=== PATIENT | female | born 1975 | race African-American/Black ===

== ENCOUNTER 2019-07-05 11:59 | Day surgery (SDC) | payer BC, OTHER ==
[2019-07-02 17:35] VITALS: BMI 39.0
[2019-07-05 12:28] LABS: BASO % 0.7 % (0-2.0); EOS % 2.5 % (0-4.5); HEMATOCRIT 26.8 % (32.4-45.2); HEMOGLOBIN 8.3 GM/dL (10.7-15.3); LYMPH % 33.8 % (8-40); MCH 24.2 pg (25.7-33.7); MEAN CELL VOLUME 78.1 fl (80-96); MEAN PLT VOLUME 7.2 fl (7.5-11.1); MONO % 8.6 % (3.8-10.2); NEUT % 54.4 % (42.8-82.8); PLATELET COUNT 279 K/MM3 (134-434); RBC 3.43 M/mm3 (3.60-5.2); RDW 15.1 % (11.6-15.6); WHITE BLOOD COUNT 4.7 K/mm3 (4.0-10.0)
[2019-07-05 12:46] LABS: INR 1.01 (0.83-1.09); PROTHROMBIN TIME (PATIENT) 11.9 SEC (9.7-13.0)
[2019-07-05 12:49] LABS: ACTIVATED PTT 31.1 SECONDS (25.2-36.5)
[2019-07-05 12:59] LABS: ALBUMIN 3.2 g/dl (3.4-5.0); ALK PHOS 66 U/L (45-117); ANION GAP 4 MMOL/L (8-16); BILIRUBIN,TOTAL 0.4 mg/dL (0.2-1); BLOOD UREA NITROGEN 10.5 mg/dL (7-18); CALCIUM 8.3 mg/dL (8.5-10.1); CHLORIDE 110 mmol/L (98-107); CO2 27 mmol/L (21-32); CREATININE 0.6 mg/dL (0.55-1.3); GLUCOSE,RANDOM 79 mg/dL (74-106); POTASSIUM 3.5 mmol/L (3.5-5.1); SGOT/AST 13 U/L (15-37); SGPT/ALT 17 U/L (13-61); SODIUM 142 mmol/L (136-145); TOT PROT 6.7 g/dl (6.4-8.2)
[2019-07-05] MEDS ORDERED: MIDAZOLAM HCL 2 MG/2 ML SINGLE DOSE VIAL ONE (13:32)
[2019-07-05] MEDS ORDERED: LIDOCAINE HCL/PF 2% SDV 5ML VIAL ONE (13:33)
[2019-07-05] MEDS ORDERED: KETOROLAC TROMETHAMINE 30 MG/1 ML VIAL ONE (13:33)
[2019-07-05] MEDS ORDERED: DEXAMETHASONE SOD PHOSPHATE 4 MG/1 ML VIAL ONE (13:33)
[2019-07-05] MEDS ORDERED: PROPOFOL 20 ML ONE ×2 (13:35→14:24)
[2019-07-05] MEDS ORDERED: ONDANSETRON 4 MG/2 ML VIAL IVPUSH PRN (13:50)
[2019-07-05] MEDS ORDERED: LACTATED RINGERS SOLUTION 1,000 ML IV SCH (14:00)
[2019-07-05] MEDS ORDERED: ceFAZolin 2 GRAM PREMIX BAG IVPB ONE (14:25)
[2019-07-05] MEDS ORDERED: ceFAZolin SODIUM 1 GM VIAL ONE (14:27)
[2019-07-05] MEDS ORDERED: SODIUM CHLORIDE 0.9% P/F 10 ML VIAL IJ ONE (14:27)
[2019-07-05] MEDS ORDERED: ONDANSETRON 4 MG/2 ML VIAL ONE (15:10)
[2019-07-05] MEDS ORDERED: oxyCODONE HCL 5 MG TABLET PO PRN (15:32)
[2019-07-05] MEDS ORDERED: ACETAMINOPHEN 325 MG TABLET (FP) PO PRN (15:32)
[2019-07-05] MEDS ORDERED: IBUPROFEN 400 MG TABLET (FP) PO PRN (15:32)
--- NOTE | 2019-07-05 15:44 | HP ---
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: Alzheimer's, CVA, Dementia, Migraine, Multiple Sclerosis, Peripheral Neuropathy, Parkinson's, Seizure, Syncope, TIA, Vertigo, Other Cardiovascular: No: AFIB, Aneurysm, Aortic Insufficiency, Aortic Stenosis, CAD, CHF, Deep Vein Thrombosis, HTN, Hyperlipdemia, [place], Mitral Insufficiency, Mitral Stenosis, Murmur, Pulmonary Hypertension, Other Pulmonary: No: Asthma, Bronchitis, Cancer, COPD, O2 Dependent, Pneumonia, Previously Intubated, Pulmonary Embolus, Pulmonary Fibrosis, Sleep Apnea, Other Gastrointestinal: No: Ascites, Cancer, Constipation, Crohn's Disease, Diverticulitis, Diverticulosis, Esophageal Varices, Gastritis, GERD, GI Bleed, Hemorrhoids, Hiatal Hernia, Inflamatory Bowel Disease, Irritable Bowel Disease, Pancreatitis, Peptic Ulcer Disease, Ulcerative Colitis, Other Hepatobiliary: No: Cirrhosis, Cholelithiasis, Cholecystitis, Choledocholithiasis , Hepatitis A, Hepatitis B, Hepatitis C, Other Renal/: No: Renal Failure, Renal Inusuff, BPH, Cancer, Hematuria, Hemodialysis , Neurogenic Bladder, Renal Calculi, UTI, Other Reproductive: No: Ectopic , Endometriosis, Fibroids, PID, Polycystic Ovary Syndrome, Postmenopausal, Other ...LMP: 06/15/19 ...: No ...: 3 ...Para: 2 Heme/Onc: Yes: Anemia Infectious Disease: No: AIDS, C-Diff, Herpes Zoster, HIV, MRSA, STD's, Tuberculosis, VREF, Other Psych: No: Addictions, Anxiety, Bipolar, Depression, Panic, Psychosis, Schizophrenia, Other Musculoskeletal: No: Bursitis, Chronic low back pain, Hemiparesis, Hemiplegia, Osteoarthritis, Paraplegia, Other Rheumatology: No: Fibromyalgia, Gout, Lupus, Rheumatoid Arthritis, Sarcoidosis, Vasculitis, Other ENT: No: Allergic Rhinitis, Sinusitis, Other Endocrine: No: Arslan's Disease, Elyse's Disease, Diabetes Insipidus, Diabetes Mellitus, Hyperparathyroidism, Hyperthyroidism, Hypothyroidism, Osteopenia, SIADH, Other Dermatology: No: Basal Cell, Cellulitis, Eczema, Melanoma, Psoriasis, Squamous Cell, Other - Past Surgical History Past Surgical History: Yes: - Advance Directives Advance Directives: Yes: Living Will - Smoking History Smoking history: Never smoked Have you smoked in the past 12 months: No - Alcohol/Substance Use Hx Alcohol Use: No History of Substance Use: reports: None - Social History Usual Living Arrangement: Yes: With Spouse Do you think of yourself as: Straight/Heterosexual ADL: Independent Occupation: police captain senior History of Recent Travel: No Home Medications - Allergies Allergies/Adverse Reactions: Allergies Allergy/AdvReac Type Severity Reaction Status Date / Time No Known Drug Allergies Allergy Verified 07/05/19 13:14 - Home Medications Home Medications: Ambulatory Orders Cyanocobalamin Vit B-12 Inj. [Redisol] 1,000 mcg IJ MONTHLY 07/02/19 Epoetin Harpreet [Procrit] 2,000 unit IJ MONTHLY 07/02/19 Iron Sucrose Injection [Venofer] 100 mg IV MONTHLY 07/02/19 Medroxyprogesterone Acetate [Provera -] 2.5 mg PO DAILY 07/02/19 Aspirin/Acetaminophen/Caffeine [Excedrin Migraine Caplet] 1 each PO PRN PRN Ibuprofen [Motrin -] 400 mg PO QID #28 tablet 07/05/19 Family Medical History Family History: Denies Review of Systems - Review of Systems Constitutional: reports: No Symptoms Eyes: reports: No Symptoms HENT: reports: No Symptoms Neck: reports: No Symptoms Cardiovascular: reports: No Symptoms Respiratory: reports: No Symptoms Gastrointestinal: reports: No Symptoms Genitourinary: reports: No Symptoms Breasts: reports: No Symptoms Reported Musculoskeletal: reports: No Symptoms Integumentary: reports: No Symptoms Neurological: reports: No Symptoms Endocrine: reports: No Symptoms Hematology/Lymphatic: reports: No Symptoms Psychiatric: reports: No Symptoms Pain Intensity: 1 Physical Examination Vital Signs: Vital Signs Temperature 97.5 F L 07/05/19 13:11 Pulse Rate 88 07/05/19 13:11 Respiratory Rate 20 07/05/19 13:11 Blood Pressure 148/87 07/05/19 13:11 O2 Sat by Pulse Oximetry (%) 100 07/05/19 13:11 Constitutional: Yes: Well Nourished, No Distress, Calm Eyes: Yes: WNL, Conjunctiva Clear, EOM Intact HENT: Yes: WNL, Atraumatic, Normocephalic Neck: Yes: WNL, Supple, Trachea Midline Cardiovascular: Yes: WNL, Regular Rate and Rhythm Respiratory: Yes: WNL, Regular, CTA Bilaterally Gastrointestinal: Yes: WNL, Normal Bowel Sounds, Soft ...Rectal Exam: Yes: WNL Renal/: Yes: WNL Breast(s): Yes: WNL Musculoskeletal: Yes: WNL Extremities: Yes: WNL Edema: No Peripheral Pulses WNL: Yes Integumentary: Yes: WNL Wound/Incision: Yes: Clean/Dry, Well Approximated Neurological: Yes: WNL, Alert, Oriented ...Motor Strength: WNL Psychiatric: Yes: WNL, Alert, Oriented Labs: CBC, BMP 07/05/19 12:07 07/05/19 12:07 Assessment/Plan for d &c, and endometrial ablation
--- NOTE | 2019-07-05 15:48 | OP ---
Operative Note - Note: Operative Date: 07/05/19 Pre-Operative Diagnosis: menorrhagia , d &c Operation: d &c, endometrial ablation Findings: uterine polyps, small fibroids Post-Operative Diagnosis: Same as Pre-op Surgeon: Chris Jaramillo Anesthesiologist/CARD SELLER: Kevyn Walker Anesthesia: General Specimens Removed: endometrial tissure Estimated Blood Loss (mls): 2 Operative Report Dictated: Yes
[2019-07-05] MEDS ORDERED: ACETAMINOPHEN 1000 MG/100 ML VIAL (NON FORMULARY) IVPB ONE ×2 (16:14→16:34)
[2019-07-05] MEDS ORDERED: ACETAMINOPHEN INJECTION 100 ML IVPB ONE (16:14)
[2019-07-05 17:52] VITALS: TEMP 97.3
[2019-07-05 19:13] VITALS: BP 126/81; PULSE 88
--- NOTE | 2019-07-06 07:27 | OP ---
DATE OF OPERATION: DATE OF DICTATION: 07/05/2019 PREOPERATIVE DIAGNOSIS: Menorrhagia and anemia. POSTOPERATIVE DIAGNOSIS: Uterine polyps and menorrhagia. PROCEDURE PERFORMED: Dilatation and curettage, hysteroscopy, and endometrial ablation. SURGEON: Chris Jaramillo MD ANESTHESIOLOGIST: Kevyn Walker M.D. ANESTHESIA: General anesthesia with sedation. INDICATIONS: A 43-year-old female patient has been complaining about menorrhagia for more than 2 years. The patient has been on and off with IM iron injection and p.o. pills and control pills. She still remains very anemic and the patient still persisting with menorrhagia, and the patient has been advised to have ablation for almost a year. The patient never followed up with the procedure and finally agreed this time for the procedure. The patient has been receiving even blood transfusion as well the past 2 years. So finally the patient taken to the OR for dilatation and curettage, hysteroscopy and endometrial ablation. DESCRIPTION OF PROCEDURE: The patient was placed on the operating table in the supine position after general anesthesia was obtained. Then the patient was placed in the lithotomy position. Then the patient's abdomen and pelvis were prepped and draped in the usual sterile manner. A heavy speculum was placed into the vagina and the cecum was grasped with a tenaculum. The patient's cervix was slightly dilated. We did a D&C at this time. Uterine polyps were removed. Endometrial tissue was sent to Pathology for further evaluation, and we proceeded with hysteroscopy. Hysteroscopy showed that the patient has a lot of uterine polyps. No pedunculated intrauterine fibroid was seen. No other pathology of the uterine cavity. Then we proceeded with the hydro-hysteroscopy ablation procedure. The hysteroscope was placed into the uterine cavity. Ablation with water was performed following the protocol of the machine and 10 to 15 minutes of ablation was performed, until the machine was satisfied with the ablation, and cooled off minutes. No complication. No leakage of fluid. scope. The patient tolerated the procedure well. Blood loss was about 2 mL. The patient was awoken from general anesthesia and was transferred to the recovery room in stable condition. No complication. MD SENAIT MILLER/[id number]
--- NOTE | 2019-07-08 15:37 | PATH ---
Surgical Pathology Report Patient Name: BRITANY ARRIAZA [facility]. Rec. #: [id number] /Age/Gender: 1975 (Age: 43) / F Account: [id number] Location: [facility] SURGICAL Taken: 07/05/2019 Received: 07/06/2019 Reported: 07/08/2019 Physicians: Chris Jaramillo MD Specimen(s) Received ENDOMETRIAL CURETTINGS Clinical History Menorrhagia Final Diagnosis ENDOMETRIAL CURETTINGS, UTERINE THERMAL ABLATION: FRAGMENTS OF WEAKLY PROLIFERATIVE ENDOMETRIUM WITH AREAS OF STROMAL AND GLANDULAR BREAKDOWN, AND BENIGN CERVICAL TISSUE. Electronically Signed Clarisse Doan M.D. Gross Description Received in formalin labeled "endometrial curettings," is a 1.8 x 1.4 x 0.3 cm aggregate of velasquez-brown soft tissue fragments admixed with mucus. The formalin is filtered and the specimen is entirely submitted in one cassette. 07/06/201907/06/2019
== END 2019-07-05 19:15 | disposition home or self-care (01) ==
LOC: JASU-SURG 11:59
PROVIDERS: ATTEND Obstetrics & Gynecology
PROC: 0UDB7ZX Extraction of Endometrium, Via Natural or Artificial Opening, Diagnostic (ICD-10-PCS; 2019-07-05)
PROC: 0UDB7ZX Extraction of Endometrium, Via Natural or Artificial Opening, Diagnostic (ICD-10-PCS; 2019-07-05)
PROC: 0U5B8ZZ Destruction of Endometrium, Via Natural or Artificial Opening Endoscopic (ICD-10-PCS; principal; 2019-07-05 14:00)
DX: N84.0 Polyp of corpus uteri (principal); N92.1 Excessive and frequent menstruation with irregular cycle
CPT/HCPCS: 36415; 80053; 84702; 85025; 85610; 85730; 86850; 86900; 86901; 94760; J0131